=== PATIENT | female | born 1990 | race Caucasian/White ===

== ENCOUNTER 2017-10-11 15:52 | Emergency (ER) | payer OTHER ==
[2017-10-11 16:24] VITALS: BMI 40.5
--- NOTE | 2017-10-11 17:49 | C.PDOC ---
History Of Present Illness 27 year old female presents to the ER with a complaint of fever, body aches, sore throat, nausea, vomiting, and abdominal pain that began today. Denies chest pain , sob, symtpoms, rash or headache. No known sick contacts. Time Seen by Provider: 10/11/17 17:47 Chief Complaint (Nursing): Flu-like Symptoms History Per: Patient History/Exam Limitations: no limitations Onset/Duration Of Symptoms: Hrs Current Symptoms Are (Timing): Still Present Location Of Pain: Throat, Diffuse Myalgias Sick Contacts (Context): None Associated Symptoms: Fever, Sore Throat, Myalgias, Nausea, Vomiting, Other ( Abdominal pain) Ear Symptoms: Bilateral: None Recent travel outside of the [place]: No Past Medical History Reviewed: Historical Data, Nursing Documentation, Vital Signs Vital Signs: Last Vital Signs Temp 99.9 F H 10/11/17 19:25 Pulse 92 H 10/11/17 19:25 Resp 16 10/11/17 19:25 BP 134/85 10/11/17 19:25 Pulse Ox 100 10/11/17 21:19 Family History: States: Unknown Family Hx - Social History Hx Alcohol Use: No Hx Substance Use: No - Immunization History Hx Tetanus Toxoid Vaccination: No Hx Influenza Vaccination: No Hx Pneumococcal Vaccination: No Review Of Systems Constitutional: Positive for: Fever ENT: Positive for: Throat Pain Respiratory: Negative for: Cough Gastrointestinal: Positive for: Nausea, Vomiting, Abdominal Pain Genitourinary: Negative for: Dysuria, Hematuria Physical Exam - Physical Exam Appears: Well, Non-toxic, No Acute Distress Skin: Normal Color, Warm, Dry Head: Atraumatic, Normacephalic Eye(s): bilateral: Normal Inspection, EOMI Ear(s): Bilateral: Normal Nose: Normal Oral Mucosa: Moist Throat: Normal, No Erythema, No Exudate Neck: Normal, Supple Chest: Symmetrical, No Tenderness Cardiovascular: Rhythm Regular Respiratory: Normal Breath Sounds, No Rales, No Rhonchi, No Wheezing Gastrointestinal/Abdominal: Soft, Tenderness (Diffuse), No Guarding, No Rebound Back: No CVA Tenderness Neurological/Psych: Oriented x3, Normal Speech ED Course And Treatment - Laboratory Results Result Diagrams: 10/11/17 19:20 10/11/17 19:20 O2 Sat by Pulse Oximetry: 100 (Room air) Pulse Ox Interpretation: Normal Progress Note: Blood work, UA, and flu swab ordered, results were negative. Protonix, toradol, tylenol, zofran, and IV fluids administered. On reevaluation , patient reports improvement of her abdominal pain and symptoms, she is resting comfortably in no acute distress, vitals are stable. Tolerating PO. Pt notes she feels better and feels comfortable going home. Advised patient that she likely as viral illness, instructed to treat symptomatically and to follow up with PMD or return if symptoms worsen. Case discussed with Dr Gotti, who reveiwed the labs and agreed upon plan and treatment. Disposition - Disposition Disposition: HOME/ ROUTINE Disposition Time: 20:15 Condition: STABLE Additional Instructions: Vaya a rondon mdico o la clnica en 2-5 méndez sin falta, para mas evaluacin. [place] los medicamentos artur indicado. Volver a la fredy de emergencia en cualquier momento si los sntomas persisten o empeoran. Prescriptions: Ibuprofen [Motrin] 600 mg PO Q6 PRN #20 tab PRN Reason: Pain, Mild (1-3) Oseltamivir Phosphate [Tamiflu] 75 mg PO BID #10 capsule Instructions: Flu, Adult (DC) Forms: [employer] (Lao) Print Language: FAROESE - Clinical Impression Clinical Impression: Influenza-like illness, Fever - PA / [employer] / Resident Statement MD/DO has reviewed & agrees with the documentation as recorded. - Scribe Statement The provider has reviewed the documentation as recorded by the Scribe Lonny Santos All medical record entries made by the Scribe were at my direction and personally dictated by me. I have reviewed the chart and agree that the record accurately reflects my personal performance of the history, physical exam, medical decision making, and the department course for this patient. I have also personally directed, reviewed, and agree with the discharge instructions and disposition.
[2017-10-11] MEDS ORDERED: Sodium Chloride 0.9% 1,000 ML IV ONE (18:28)
[2017-10-11 19:25] VITALS: BP 134/85; PULSE 92; RESP 16; TEMP 99.9
[2017-10-11 19:25] LABS: BASO % 0.4 % (0.0-2.0); EOS % 0.3 % (0.0-4.0); HEMOGLOBIN 14.8 g/dL (11.0-16.0); LYMPH # 1.1 K/uL (1.0-4.3); LYMPH % 9.9 % (20.0-40.0); MEAN CELL VOLUME 86.4 fL (81.0-99.0); MEAN CORPUSCULAR HEMOGLOBIN 29.5 pg (27.0-31.0); MEAN CORPUSCULAR HGB CONC 34.2 g/dL (33.0-37.0); MEAN PLATELET VOLUME 9.1 fL (7.2-11.7); MONO # 0.6 K/uL (0.0-0.8); MONO % 5.1 % (0.0-10.0); NEUT # 9.2 K/uL (1.8-7.0); NEUT % 84.3 % (50.0-75.0); PLATELET COUNT 237 K/uL (130-400); RED CELL DISTRIBUTION WIDTH 13.5 % (11.5-14.5); WHITE BLOOD COUNT 10.9 K/uL (4.8-10.8)
[2017-10-11 19:30] LABS: HCG,QUALITATIVE URINE NEGATIVE (NEGATIVE)
[2017-10-11 19:33] LABS: SQUAMOUS EPITHIAL 1 /hpf (0-5); URINE BACTERIA RARE (<OCC); URINE BILIRUBIN NEGATIVE (NEGATIVE); URINE BLOOD NEGATIVE (NEGATIVE); URINE CLARITY Clear (Clear); URINE COLOR Colorless (YELLOW); URINE GLUCOSE (UA) NORMAL (Normal); URINE LEUKOCYTE ESTERASE NEG Leu/uL (Negative); URINE NITRATE NEGATIVE (NEGATIVE); URINE PROTEIN NEGATIVE (NEGATIVE); URINE UROBILINOGEN NORMAL mg/dL (0.2-1.0)
[2017-10-11 19:37] LABS: CALCIUM 9.9 mg/dl (8.6-10.4); GFR AFRICAN-AMERICAN > 60; GFR NON-AFRICAN AMERICAN > 60; LIPASE 39 U/L (23-300)
[2017-10-11 19:38] LABS: ALBUMIN 4.3 g/dL (3.5-5.0); ALT/SGPT 27 U/L (9-52); AST/SGOT 35 U/L (14-36); BLOOD UREA NITROGEN 10 mg/dL (7-17)
[2017-10-11 20:16] VITALS: O2SAT 100
[2017-10-11 20:17] LABS: BANDS 5 % (0-2); LYMPHOCYTE 10 % (20-40); MONOCYTE 8 % (0-10); NEUTROPHIL 77 % (50-75); PLATELET ESTIMATE NORMAL (NORMAL); TOTAL CELLS COUNTED 100
[2017-10-11 20:18] LABS: MICROCYTOSIS SLIGHT
[2017-10-11 20:19] LABS: LARGE PLATELETS PRESENT
== END 2017-10-11 20:59 | disposition home or self-care (01) ==
LOC: C.ER 15:52
DX: J11.1 Influenza due to unidentified influenza virus with other respiratory manifestations (principal)
CPT/HCPCS: 80053; 81001; 83690; 84703; 85025; 87804; 96361; 96374; 96375; 99283; C9113; J1885; J2405; J7040

== ENCOUNTER 2017-12-20 18:35 | Emergency (ER) | payer SELFPAY ==
[2017-12-20 18:36] VITALS: BMI 40.5
[2017-12-20 18:51] VITALS: BP 136/98; PULSE 74; RESP 18; TEMP 98.1; O2SAT 99
--- NOTE | 2017-12-20 19:27 | C.PDOC ---
History Of Present Illness 27 year old female presents to the ED for evaluation of right sided headache which gradually developed for over 3 days. Pain is associated with right sided neck pain radiating to the right arm. 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 Denies severe headache , visual changes, chest pain, sob, and right sided weakness. Time Seen by Provider: 12/20/17 18:52 Chief Complaint (Nursing): Upper Extremity Problem/Injury History Per: Patient History/Exam Limitations: no limitations Onset/Duration Of Symptoms: Days (3) Current Symptoms Are (Timing): Still Present Past Medical History Reviewed: Historical Data, Nursing Documentation, Vital Signs Vital Signs: Last Vital Signs Temp 98.1 F 12/20/17 18:42 Pulse 74 12/20/17 18:42 Resp 18 12/20/17 18:42 BP 136/98 H 12/20/17 18:42 Pulse Ox 99 12/20/17 19:46 Surgical History: Family History: States: Unknown Family Hx - Social History Hx Alcohol Use: No Hx Substance Use: No - Immunization History Hx Tetanus Toxoid Vaccination: No Hx Influenza Vaccination: Yes (2017) Hx Pneumococcal Vaccination: No Review Of Systems Except As Marked, All Systems Reviewed And Found Negative. Cardiovascular: Negative for: Chest Pain Respiratory: Negative for: Shortness of Breath Musculoskeletal: Positive for: Neck Pain (right side) Physical Exam - Physical Exam Appears: Non-toxic, No Acute Distress Skin: Normal Color, Warm Head: Atraumatic, Normacephalic Eye(s): bilateral: Normal Inspection, PERRL, EOMI Nose: Normal Oral Mucosa: Moist Neck: Paracervical Tenderness (right sided neck tenderness and spasm) Chest: Symmetrical Cardiovascular: Rhythm Regular, No Murmur Respiratory: Normal Breath Sounds, No Accessory Muscle Use Extremity: Normal ROM, Tenderness (diffuse right shoulder tenderness), No Deformity, No Swelling Pulses: Left Radial: Normal, Right Radial: Normal Neurological/Psych: Oriented x3, Normal Speech ED Course And Treatment O2 Sat by Pulse Oximetry: 99 (RA) Pulse Ox Interpretation: Normal Progress Note: Patient was given Motrin 600 mg PO, Reglan 10 mg PO, Prednisone 60 mg PO medications. Ordered a Urinalysis. On re-evaluation, pt reports improveemnt in sx, is comfortable, not in any apparent distress. AFebrile, hemodynamicaly stable. PulseOx 99% RA. Neck: SUpple, (-) meningeal sign, (-) JVD, (-) carotid bruits B/L. ENT: no acute findings. Uvula midline, no edema. Lungs: CTA B/L, BS equal B/L. CVS: (+)S1, S2. ABd: benign. Neurologicaly intact. UA results normal. Pt has clinical findings c/w headache, cervical radiculopathy, muscle spasm, right UE overuse. Pt advised on course of ds. ref. to f/u with PMD in 2 days for re-eval. return to ED if any worsening or new changes. Disposition Counseled Patient/Family Regarding: Studies Performed, Diagnosis, Need For Followup, Rx Given - Disposition Referrals: Felix Hess MD [Staff Provider] - Disposition: HOME/ ROUTINE Disposition Time: 20:16 Condition: STABLE Additional Instructions: Encourage fluids Take medication as prescribed Light duty to Right arm Follow up with PMD in 2-3 days for re-evaluation. return to ED if any worsening or new changes. 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 - Scribe Statement The provider has reviewed the documentation as recorded by the Scribe (July Saez) All medical record entries made by the Scribe were at my direction and personally dictated by me. I have reviewed the chart and agree that the record accurately reflects my personal performance of the history, physical exam, medical decision making, and the department course for this patient. I have also personally directed, reviewed, and agree with the discharge instructions and disposition.
[2017-12-20 19:55] LABS: SQUAMOUS EPITHIAL < 1 /hpf (0-5); URINE BACTERIA RARE (<OCC); URINE BILIRUBIN NEGATIVE (NEGATIVE); URINE CLARITY Clear (Clear); URINE COLOR Straw (YELLOW); URINE GLUCOSE (UA) NORMAL (Normal); URINE LEUKOCYTE ESTERASE NEG Leu/uL (Negative); URINE PROTEIN NEGATIVE (NEGATIVE); URINE UROBILINOGEN NORMAL mg/dL (0.2-1.0)
[2017-12-20 20:03] LABS: URINE BLOOD TRACE (NEGATIVE)
== END 2017-12-20 20:34 | disposition home or self-care (01) ==
LOC: C.ER 18:35
DX: M54.12 Radiculopathy, cervical region (principal); R51 Headache